=== PATIENT | female | born 1985 | race Caucasian/White ===

== ENCOUNTER 2018-12-09 17:37 | Emergency (ER) | payer MEDICAID ==
[~2018-12-09] VITALS: Ht 167.6 cm; Wt 74.8 kg
--- NOTE | 2018-12-09 17:41 | NUR ---
PT BIBSELF FROM HOME; C/O H/A, MIGRAINE SYMPTOMS, PT AAOX4, RESPIRATIONS EVEN AND UNLABORED, NO SOB, NAD NOTED, PT ON MONITOR, VSS, PENDING ER PROVIDER NELDA
[2018-12-09] MEDS ORDERED: KETOROLAC TROMETHAMINE INJ 30 MG/ML VIAL IV ONE (19:00)
[2018-12-09] MEDS ORDERED: diphenhydrAMINE HCL 50 MG/ML VIAL IV ONE (19:00)
[2018-12-09] MEDS ORDERED: IV NS 0.9% 1,000 ML BAG IV ONE (19:00)
[2018-12-09] MEDS ORDERED: PROCHLORPERAZINE EDISYLATE 10 MG/2 ML VIAL IV ONE (19:00)
[2018-12-09] MEDS ORDERED: KETOROLAC TROMETHAMINE 15 MG/ML VIAL ONE (19:16)
[2018-12-09] MEDS ORDERED: diphenhydrAMINE HCL 50 MG/ML VIAL ONE (19:16)
[2018-12-09] MEDS ORDERED: PROCHLORPERAZINE EDISYLATE 10 MG/2 ML VIAL ONE (19:16)
[2018-12-09 20:16] VITALS: BP 121/83
--- NOTE | 2018-12-09 20:18 | NUR ---
Patient is resting comfortably in bed with eyes closed. Easily aroused. VSS
--- NOTE | 2018-12-09 20:39 | NUR ---
Patient discharged to home in stable condition. Written and verbal after care instructions given. Patient verbalizes understanding of instruction. IV removed. Catheter intact and site benign. Pressure and 4x4 applied to site. No bleeding noted.
== END 2018-12-09 20:40 | disposition home or self-care (01) ==
LOC: ER 17:41
DX: G43.909 Migraine, unspecified, not intractable, without status migrainosus (principal); R11.2 Nausea with vomiting, unspecified; Z98.890 Other specified postprocedural states
CPT/HCPCS: J0780; J1200; J1885; J7030

== ENCOUNTER 2019-02-04 08:32 | Emergency (ER) | payer MEDICAID ==
[~2019-02-04] VITALS: Ht 160 cm; Wt 69.4 kg
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
--- NOTE | 2019-02-04 08:40 | NUR ---
DR MOHAMUD AT BEDSIDE FOR EVAL.
--- NOTE | 2019-02-04 09:49 | NUR ---
Patient discharged to home in stable condition. Written and verbal after care instructions given. Patient verbalizes understanding of instruction.
[2019-02-04 09:50] VITALS: BP 110/72
== END 2019-02-04 09:51 | disposition home or self-care (01) ==
LOC: ER 08:36
DX: F41.9 Anxiety disorder, unspecified (principal); R51 Headache; Z98.890 Other specified postprocedural states; V49.49XA Driver injured in collision with other motor vehicles in traffic accident, initial encounter; Y93.89 Activity, other specified; Y92.410 Unspecified street and highway as the place of occurrence of the external cause; Y99.8 Other external cause status
CPT/HCPCS: 70450; 71045; 99284; A4606

== ENCOUNTER 2023-12-30 14:59 | Emergency (ER) | payer MEDICAID, OTHER ==
[~2023-12-30] VITALS: Ht 170.2 cm; Wt 67.6 kg
[2023-12-30] MEDS ORDERED: KETOROLAC TROMETHAMINE INJ 30 MG/ML VIAL ONE (16:12)
[2023-12-30] MEDS ORDERED: ONDANSETRON HCL/PF 4 MG/2 ML VIAL ONE (16:12)
[2023-12-30] MEDS: MORPHINE SULFATE INJ 2 MG/ML DISP.SYRIN IV ONE (16:16)
[2023-12-30] MEDS: KETOROLAC TROMETHAMINE INJ 30 MG/ML VIAL IV ONE (16:17)
[2023-12-30] MEDS: ONDANSETRON HCL/PF - ER 4 MG/2 ML VIAL IV ONE (16:18)
[2023-12-30 16:48] LABS: BASOPHILS % (AUTO) 0.2 % (0.0-2.0); EOSINOPHILS % (AUTO) 0.1 % (0.0-6.0); HEMATOCRIT 40 % (33-45); HEMOGLOBIN 12.9 g/dL (11.5-14.8); LYMPHOCYTES % (AUTO) 9.1 % (20.0-44.0); MEAN CORPUSCULAR HEMOGLOBIN 30 PG (26.0-33.0); MEAN CORPUSCULAR HGB CONC 33 g/dl (31.0-36.0); MEAN CORPUSCULAR VOLUME 91 fL (82-100); MONOCYTES # (AUTO) 0.3 K/uL (0.1-1.30); NEUTROPHILS # (AUTO) 9.7 K/uL (1.8-8.9); NEUTROPHILS % (AUTO) 87.6 % (43.0-81.0); PLATELET COUNT (AUTO) 233 K/uL (150-450); RED BLOOD CELL COUNT(AUTO) 4.35 MIL/uL (4.0-5.2); WHITE BLOOD COUNT (AUTO) 11.1 K/uL (4.3-11.0)
[2023-12-30 16:51] LABS: APPEARANCE,URINE CLOUDY (CLEAR); BILIRUBIN,URINE NEGATIVE (NEGATIVE); BLOOD, URINE 2+ Ery/uL (NEGATIVE); COLOR,URINE YELLOW (YELLOW); KETONES,URINE NEGATIVE (NEGATIVE); LEUKOCYTE ESTERASE ,URINE NEGATIVE (NEGATIVE); NITRITE, URINE NEGATIVE (NEGATIVE); PH,URINE 8.5 (5.0-8.0); PROTEIN,URINE NEGATIVE (NEGATIVE); UGLUCOSE NEGATIVE (NEGATIVE); UROBILINOGEN,URINE 0.2 EU/dL (0.2)
[2023-12-30 16:54] LABS: PREGNANCY TEST URINE QUAL NEGATIVE (NEGATIVE)
[2023-12-30 17:00] LABS: CALCIUM, SERUM 9.2 mg/dL (8.5-10.1); CREATININE 0.6 mg/dL (0.6-1.3); POTASSIUM 3.9 mmol/L (3.5-5.1)
[2023-12-30 17:08] LABS: BILIRUBIN,TOTAL 0.6 mg/dL (0.2-1.0); TOTAL PROTEIN, SERUM 7.5 g/dL (6.4-8.2)
[2023-12-30 17:11] LABS: LACTIC ACID 1.1 mmol/L (0.4-2.0)
[2023-12-30 17:13] LABS: ADD URINE CULTURE NO; BACTERIA,URINE None seen /HPF (None Seen); URINE AMORPHOUS URATE Many /HPF (None Seen); WBC,URINE NONE SEEN /HPF (0-3)
[2023-12-30 18:41] VITALS: BP 121/76; TEMP 98.2; O2SAT 99
[2023-12-30 19:03] LABS: AMPHETAMINE, URINE NEGATIVE (NEGATIVE); BARBITURATE, URINE NEGATIVE (NEGATIVE); BENZODIAZEPINE, URINE NEGATIVE (NEGATIVE); CANNABINOID, URINE NEGATIVE (NEGATIVE); COCCAINE, URINE NEGATIVE (NEGATIVE); OPIATE, URINE NEGATIVE (NEGATIVE); PHENCYCLIDINE SCREEN,URINE NEGATIVE (NEGATIVE)
== END 2023-12-30 18:43 | disposition home or self-care (01) ==
LOC: ER 14:59
DX: G43.909 Migraine, unspecified, not intractable, without status migrainosus (principal); R11.2 Nausea with vomiting, unspecified
CPT/HCPCS: 99285; 96374; 70450; 96375; 85025; 83605; 84703; 36415; 80053; 80307; 81001; J1885; J2405